=== PATIENT | female | born 1965 | race Caucasian/White ===

== ENCOUNTER → 2021-01-13 | Outpatient (CLI) | payer BC ==
[~2021-01-13] MED LIST: ALPR.25T PO; TRM50T PO; VYTORIN
--- NOTE | 2021-01-13 10:50 | Diagnostic Imaging Report ---
PROCEDURE: US Gallbladder. TECHNIQUE: Multiple real-time grayscale images were obtained over the right upper quadrant in various projections. INDICATION: Right upper quadrant pain. FINDINGS: The liver is homogeneous in appearance. No masses. Long axis of 17 cm. Bile ducts are not dilated. Common duct measures 4 mm. Gallbladder is somewhat contracted with mild thickening of the gallbladder wall measuring 3 mm. There is acoustical shadowing stone within the neck of the gallbladder measuring approximately 1 cm. Pancreas appears normal. Right kidney is normal measuring 9 x 5 x 4.5 cm. The aorta, vena cava and portal vein appear normal with Doppler sampling. IMPRESSION: 1. Cholelithiasis with contracted gallbladder with thickened gallbladder wall. Bile ducts are not dilated. Dictated by: Dictated on workstation # [id number]
== END ==
LOC: RAD 08:50
DX: K80.20 Calculus of gallbladder without cholecystitis without obstruction (principal); K82.8 Other specified diseases of gallbladder
CPT/HCPCS: 76705

== ENCOUNTER 2021-01-29 05:43 | Outpatient (CLI) | payer BC ==
[~2021-01-29] VITALS: Ht 149.9 cm; Wt 62.3 kg
[2021-01-29] MEDS ORDERED: ROSU20TA32 PO (10:49)
[2021-01-29] MEDS ORDERED: OMEP40CA27 PO (10:49)
== END 2021-01-29 10:58 | disposition home or self-care (01) ==
LOC: PREOP 05:43
PROVIDERS: ATTEND Surgery
DX: Z01.818 Encounter for other preprocedural examination (principal)

== ENCOUNTER 2021-02-05 08:17 | Day surgery (SDC) | payer BC ==
[2021-02-05] VITALS (11 sets, daily range): BP systolic 132–171; BP diastolic 75–96
[~2021-02-05] VITALS: Ht 149.9 cm; Wt 62.3 kg
[~2021-02-05 08:17] MED LIST changes: +OMEP40CA27 PO; +ROSU20TA32 PO
[2021-02-05] MEDS ORDERED: ROCURONIUM 10 MG/ML 5 ML SYRINGE IV ONE ×2 (08:44→08:46)
[2021-02-05] MEDS: LACTATED RINGERS 1,000 ML IV PRN ×2 (08:45→11:02)
[2021-02-05] MEDS ORDERED: SEVOFLURANE (ULTANE) 15 ML INHAL SOLN ONE ×3 (08:46→11:51)
[2021-02-05] MEDS ORDERED: MIDAZOLAM 2 MG/2 ML (VERSED) VIAL ONE (08:46)
[2021-02-05] MEDS ORDERED: LIDOCAINE/EPI 1%-1:200,000 (XYLOCAINE) 30 ML VIAL ONE (08:46)
[2021-02-05] MEDS ORDERED: ONDANSETRON 4 MG/2 ML (SDV) Z0FRAN ONE (08:46)
[2021-02-05] MEDS ORDERED: fentaNYL INJ 100 MCG/2 ML AMP ONE ×2 (08:46→11:40)
[2021-02-05] MEDS ORDERED: LIDOCAINE PF 2% 5 ML (XYLOCAINE) VIAL ONE (08:46)
[2021-02-05] MEDS ORDERED: proPOfol 200 MG/20 ML (DIPRIVAN) VIAL IV ONE (08:46)
[2021-02-05 08:53] LABS: BASOPHILS # (AUTO) 0.1 10^3/uL (0.0-0.1); BASOPHILS % (AUTO) 1 % (0-10); EOSINOPHILS # (AUTO) 0.4 10^3/uL (0.0-0.3); EOSINOPHILS % (AUTO) 3 % (0-10); HEMATOCRIT 44 % (35-52); HEMOGLOBIN 14.7 g/dL (11.5-16.0); LYMPHOCYTES # (AUTO) 4.5 10^3/uL (1.0-4.0); LYMPHOCYTES % (AUTO) 35 % (12-44); MEAN CORPUSCULAR HEMOGLOBIN 29 pg (25-34); MEAN CORPUSCULAR HGB CONC 33 g/dL (32-36); MEAN CORPUSCULAR VOLUME 88 fL (80-99); MEAN PLATELET VOLUME 10.8 fL (9.0-12.2); MONOCYTES # (AUTO) 0.8 10^3/uL (0.0-1.0); MONOCYTES % (AUTO) 6 % (0-12); NEUTROPHILS # (AUTO) 7.3 10^3/uL (1.8-7.8); NEUTROPHILS % (AUTO) 56 % (42-75); PLATELET COUNT 269 10^3/uL (130-400); WHITE BLOOD COUNT 13.1 10^3/uL (4.3-11.0)
[2021-02-05] MEDS ORDERED: WATER (STERILE) FOR INJECTION 10 ML ONE (08:58)
[2021-02-05] MEDS ORDERED: ceFAZolin INJECTION 1,000 MG ONE (08:58)
[2021-02-05] MEDS ORDERED: ceFAZolin INJECTION 1,000 MG in WATER (STERILE) FOR INJECTION 10 ML IV ONE (09:00)
--- NOTE | 2021-02-05 09:18 | Progress Note-Pre Operative ---
Pre-Operative Progress Note H&P Reviewed The H&P was reviewed, patient examined and no changes noted. Date Seen by Provider: Feb 05, 2021 Time Seen by Provider: 09:15 Date H&P Reviewed: Feb 05, 2021 Time H&P Reviewed: 09:10 Pre-Operative Diagnosis: Chronic calculous cholecystitis JAS VIGIL APRN Feb 05, 2021 09:18
[2021-02-05] MEDS ORDERED: HYDR-3817 PO (09:20)
--- NOTE | 2021-02-05 09:21 | Discharge Inst-Surgical ---
D/C Lap Instructions-KIDO Reconcile Patient Problems Problems Reviewed?: Yes New, Converted, or Re-Newed RX: RX on Chart Follow Up Appt in 2 weeks Activity as tolerated No driving for 24 hours No driving while on pain medications Incentive Spirometry use every 2 hours while awake Regular Diet Symptoms to Report: Fever over 101 degree F, Nausea/Vomiting Infection Signs and Symptoms to report: Increased redness, Foul odor of wound, Increased drainage Bathing instructions: May shower Operative Area Clean/Dry; Keep incision clean/dry If any problems/questions: Contact your physician or go to Emergency Room JAS VIGIL APRN Feb 05, 2021 09:21
[2021-02-05] MEDS ORDERED: morphine INJ 10 MG/ML 1ML (SYR OR VIAL) IVP PRN (09:30)
[2021-02-05] MEDS ORDERED: HYDROcodone/APAP 5 MG/325 MG (LORTAB) TAB PO ONE (09:30)
[2021-02-05] MEDS ORDERED: ACETAMINOPHEN 325 MG TABLET PO PRN (09:30)
[2021-02-05] MEDS ORDERED: ONDANSETRON 4 MG/2 ML (SDV) Z0FRAN IVP PRN ×2 (09:30→10:30)
[2021-02-05] MEDS ORDERED: MEPERIDINE (DEMEROL) INJ 50 MG/ML IVP ONE (10:30)
[2021-02-05] MEDS ORDERED: fentaNYL INJ 100 MCG/2 ML AMP IVP ONE (10:30)
--- NOTE | 2021-02-05 11:51 | Progress Note-Post Operative ---
Post-Operative Progess Note Surgeon (s)/Laborer [employer] Preserving Plant (s) Surgeon JULIAN DEMARCO MD Laborer [employer]erving Plant: sae victoria COMMIS CHEF Pre-Operative Diagnosis Chronic calculous cholecystitis Post-Operative Diagnosis same Procedure & Operative Findings Date of Procedure 02/05/21 Procedure Performed/Findings laparoscopic cholecystectomy Anesthesia Type get Estimated Blood Loss Estimated blood loss (mL): 100ml Specimens/Packing Specimens Removed gallbladder JULIAN DEMARCO MD Feb 05, 2021 11:51
[2021-02-05] MEDS ORDERED: HYDROcodone/APAP 5 MG/325 MG (LORTAB) TAB ONE (13:02)
--- NOTE | 2021-02-05 13:30 | Anesthesia-General Post-Op ---
General Patient Condition Mental Status/LOC: Same as Preop Cardiovascular: Satisfactory Nausea/Vomiting: Absent Respiratory: Satisfactory Pain: Controlled Complications: Absent Post Op Complications Complications None Follow Up Care/Instructions Patient Instructions None needed. Anesthesia/Patient Condition Patient Condition Patient is doing well, no complaints, stable vital signs, no apparent adverse anesthesia problems. No complications reported per nursing. MYRA MCDONNELL CRNA Feb 05, 2021 13:30
--- NOTE | 2021-02-05 17:55 | OPERATIVE REPORT ---
DATE OF SERVICE: 02/05/2021 ATTENDING PRIMARY CARE PHYSICIAN: Dr. Henri Hernandez. PREOPERATIVE DIAGNOSIS: Chronic calculous cholecystitis. POSTOPERATIVE DIAGNOSIS: Acute calculous cholecystitis. PROCEDURE PERFORMED: Laparoscopic cholecystectomy. SURGEON: Julian Demarco MD. RESTORATIVE ART EMBALMER: Rey Mckoy APRN. ANESTHESIA: General endotracheal. ESTIMATED BLOOD LOSS: 100 mL. FINDINGS: Gallbladder wall inflammation, large gallstone. DISPOSITION: The patient tolerated the procedure well. INDICATIONS FOR PROCEDURE: The patient is a 55-year-old female, who was referred over to us for a right upper abdominal quadrant pain for the past several months, which is sharp and severe in nature. She states that this was initially mild; however, became significantly worse over time with radiation towards the back was also associated with nausea and vomiting. She had an ultrasound performed, which did show a thickened gallbladder wall as well as gallstones. DESCRIPTION OF PROCEDURE: The patient was brought to the operating room, laid supine on the table. After adequate IV pain and sedative medications and general endotracheal intubation, the abdomen was prepped and draped in a standard surgical fashion. A 0.5% Marcaine with epinephrine was used to anesthetize the overlying skin left upper abdominal quadrant and a transverse skin incision made using a 15 blade. A 0 silk suture was applied to the medial aspect of the incision for retraction and a Veress needle inserted with a low opening pressure of 0 mmHg and the abdomen was then insufflated to 15 mmHg pressure. The Veress needle was removed and a 5 mm XL trocar placed followed by a 5 mm 45-degree angle laparoscope visualizing the peritoneal cavity. A four-quadrant abdominal exploration was performed. There were omental adhesions to the gallbladder as well as gallbladder wall thickening consistent with an acute cholecystitis. Under direct visualization, we then proceeded to place a supraumbilical 10 mm port after the skin and peritoneal lining were anesthetized using 0.5% Marcaine with epinephrine and a transverse skin incision made using a 15 blade. In a similar manner, two right upper abdominal quadrant 5 mm ports were placed. The patient was then placed in a reverse Trendelenburg position as well as plane right side up, left side down. The gallbladder was then retracted anteriorly and superiorly and the omental adhesions were then taken down using blunt dissection as well as electrocautery on the hook instrument. The hepatoduodenal ligament was then dissected using a [place] dissector as well as blunt dissection using the hook instrument as well as cautery. The entire critical view of safety was identified including the triangle of Calot as well as the cystic duct and artery as only two structures going into the gallbladder as well as the cystic plate behind the proximal gallbladder. A timeout was then taken and the cystic duct and artery were then clipped proximally, distally and cut with EndoShears. The gallbladder was then dissected off the liver bed using cautery on hook instrument with visualization of good hemostasis as well as no leaking ducts of Luschka. The gallbladder was removed through the 10 mm port site using an EndoCatch bag. The 10 mm port site fascia and peritoneum were then closed under direct visualization using a Damien-Lissa device and 0 Vicryl suture. The abdomen was desufflated and remaining ports removed. All skin incisions were closed using 4-0 Monocryl running subcuticular sutures. Wounds were then cleaned and covered with Dermabond. The patient tolerated the procedure well. We will start IV normal pain medication as well as a clear liquid diet. Once she is tolerating clears, has good pain control with oral pain medications, and is ambulating well, we will discharge her home. Job ID: [id number] DocumentID: [id number] Dictated Date: 02/05/2021 12:05:39 Asbestos Pipe Supervisor Date: 02/05/2021 17:54:26 Dictated By: JULIAN DEMARCO MD
== END 2021-02-05 14:10 | disposition home or self-care (01) ==
LOC: SDC 08:17
PROVIDERS: ATTEND Surgery
DX: K80.12 Calculus of gallbladder with acute and chronic cholecystitis without obstruction (principal); K21.9 Gastro-esophageal reflux disease without esophagitis; E78.00 Pure hypercholesterolemia, unspecified; E78.5 Hyperlipidemia, unspecified; F41.9 Anxiety disorder, unspecified; F17.210 Nicotine dependence, cigarettes, uncomplicated; Z98.51 Tubal ligation status; Z79.899 Other long term (current) drug therapy; Z83.3 Family history of diabetes mellitus; Z82.49 Family history of ischemic heart disease and other diseases of the circulatory system
CPT/HCPCS: 36415; 85025; 87081; 88304